=== PATIENT | female | born 1980 | race Caucasian/White ===

== ENCOUNTER 2017-04-29 21:11 | Emergency (ER) | payer OTHER ==
[2017-04-29 21:20] VITALS: TEMP 97.8; BMI 31.1
[2017-04-29] MEDS ORDERED: SODIUM CHLORIDE 1,000 ML IV STA (23:07)
[2017-04-29] MEDS ORDERED: ONDANSETRON 4 MG/2 ML VIAL IVPUSH ONE (23:08)
[2017-04-29] MEDS ORDERED: ONDANSETRON 4 MG/2 ML VIAL ONE (23:14)
[2017-04-29 23:26] LABS: BASOPHIL 1.3 % (0-2.0); EOSINOPHIL 3.5 % (0-4.5); MCH 30.2 pg (25.7-33.7); MCHC 33.1 g/dl (32.0-36.0); MEAN CELL VOLUME 91.3 fl (80-96); MEAN PLT VOLUME 8.6 fl (7.5-11.1); NEUTROPHILS 46.2 % (42.8-82.8); PLATELET COUNT 278 K/MM3 (134-434); RDW 13.3 % (11.6-15.6); WHITE BLOOD COUNT 9.4 K/mm3 (4.0-10.0)
[2017-04-30 00:07] LABS: ALBUMIN 3.4 g/dl (3.4-5.0); ALK PHOS 64 U/L (45-117); AMYLASE 57 U/L (25-115); ANION GAP 9 (8-16); BILIRUBIN,TOTAL 0.2 mg/dL (0.2-1.0); CALCIUM 8.5 mg/dL (8.5-10.1); CO2 25 mmol/L (21-32); CREATININE 0.6 mg/dL (0.55-1.02); GLUCOSE,RANDOM 93 mg/dL (74-106); SGOT/AST 14 U/L (15-37); SGPT/ALT 17 U/L (12-78); TOT PROT 6.4 g/dl (6.4-8.2)
[2017-04-30 00:29] LABS: URINE APPEARANCE CLEAR; URINE BILIRUBIN NEGATIVE (NEGATIVE); URINE COLOR STRAW; URINE GLUCOSE (UA) NEGATIVE (NEGATIVE); URINE KETONE NEGATIVE (NEGATIVE); URINE LEUK ESTERASE NEGATIVE (NEGATIVE); URINE NITRITE NEGATIVE (NEGATIVE); URINE UROBILINOGEN NEGATIVE E.U./dl (0.2-1.0)
[2017-04-30 00:30] LABS: URINE BLOOD 3+ (NEGATIVE); URINE PROTEIN 1+ (NEGATIVE)
[2017-04-30 00:43] LABS: URINE MUCUS RARE; URINE RBC 21 /hpf (0-3)
--- NOTE | 2017-04-30 00:53 | PDOC ---
History of Present Illness - General Chief Complaint: Nausea/Vomiting Stated Complaint: NAUSEA Time Seen by Provider: 04/29/17 22:58 History Source: Patient, Family, Bar Examiner Used Exam Limitations: Language Barrier - History of Present Illness Travel History: No Initial Comments: 04/30/17 00:58 37yo Female patient w/ PmHx: HTN, Asthma presents to ED c/o n/v x 2 day. No change in appetite but unable to hold anything down. Associated sleepiness. LNMP : April 26. Patient denies any other complaints at this time. Timing/Duration: reports: constant Quality: reports: moderate Abdominal Pain Onset Location: denies: RUQ, LUQ, RLQ, LLQ, epigastric, periumbilical, suprapubic, generalized abdomen, flank, unknown, other Pain Radiation: denies: no radiation, RUQ, LUQ, RLQ, LLQ, epigastric, periumbilical, flank, groin, scapula, shoulder, chest, back, other Activities at Onset: denies: none, exertion, emotional upset, rest, sleep, no specific activity, eating, working, sexual intercourse, other Treatment Prior to Arrive: worse with: analgesics, antacids, cold pack, heat, laxative, enema, other Aggravating Factors: worse with: None, Defecation, Eating, Emotional upset, Exertion, Ramos, Movement, Voiding, Change in position Alleviating Factors: worse with: None, Belching, Shallow Breathing, Defecation, Eating, Holding Breath, Passing Gas, Change in Position, Rest, Voiding, Vomiting Past History - Travel Traveled outside of the country in the last 30 days: No Close contact w/someone who was outside of country & ill: No - Past Medical History Allergies/Adverse Reactions: Allergies Allergy/AdvReac Type Severity Reaction Status Date / Time No Known Allergies Allergy Verified 04/29/17 21:20 Home Medications: Ambulatory Orders Labetalol HCl [Normodyne -] 300 mg PO BID #60 tablet 01/14/15 Hydrochlorothiazide [Hctz -] 100 mg PO DAILY 02/14/15 Albuterol Sulfate Inhaler - [Ventolin HFA Inhaler -] 2 inh PO Q6H #1 inh Prednisone [Deltasone -] 40 mg PO DAILY #14 tablet 02/15/15 Ondansetron [Zofran Odt -] 4 mg SL Q6H PRN #20 od.tablet 04/30/17 Asthma: Yes Cancer: No Cardiac Disorders: No Diabetes: No HTN: Yes (since 1999) Suicide Attempt (Hx): No Seizures: No Thyroid Disease: No - Surgical History Abdominal Surgery: Yes - Reproductive History (#): 3 Para: 2 - Psycho/Social/Smoking Cessation Hx Anxiety: No Suicidal Ideation: No Smoking Status: No Smoking History: Never smoked Have you smoked in the past 12 months: No Number of Cigarettes Smoked Daily: 0 Hx Alcohol Use: No Drug/Substance Use Hx: No Substance Use Type: None Hx Substance Use Treatment: No Abd/GI Specific PMHX - Complaint Specific PMHX Colitis: No Diverticulitis: No Gall Bladder Disease: No GERD: No Hepatitis: No Irritable Bowel Synd (IBS): No Pancreatitis: No GI Ulcer Disease: No Review of Systems - Review of Systems Able to Perform ROS?: Yes Is the patient limited Persian proficient: No Constitutional: No: Chills, Fever ABD/GI: Yes: Nausea, Vomiting. No: Abdominal Distended, Constipated, Diarrhea, Difficulty Swallowing, Poor Appetite, Poor Fluid Intake, Rectal Bleeding, Abdominal cramping All Other Systems: Reviewed and Negative *Physical Exam - Vital Signs Last Vital Signs Temp Pulse Resp BP Pulse Ox 97.8 F 77 18 126/76 99 04/29/17 21:18 04/29/17 21:18 04/29/17 21:18 04/29/17 21:18 04/29/17 21:18 - Physical Exam General Appearance: Yes: Nourished, Appropriately Dressed. No: Apparent Distress, Mild Distress, Moderate Distress, Severe Distress HEENT: positive: EOMI, SYLVIA, Normal ENT Inspection, Normal Voice, Symmetrical, TMs Normal, Pharynx Normal. negative: Pharyngeal Erythema, Tonsillar Exudate, Tonsillar Erythema, Nasal Congestion, Rhinorrhea, Sinus Tenderness, TM Bulging, TM Dull, TM Erythema Neck: positive: Trachea midline, Normal Thyroid, Supple. negative: Decreased range of motion, Stridor, Lymphadenopathy (R), Lymphadenopathy (L) Respiratory/Chest: positive: Lungs Clear, Normal Breath Sounds. negative: Chest Tender, Respiratory Distress, Accessory Muscle Use, Labored Respiration, Rapid RR, Decreased Breath Sounds, Rhonchi, Stridor, Wheezing Cardiovascular: positive: Regular Rhythm, Regular Rate Gastrointestinal/Abdominal: positive: Normal Bowel Sounds, Soft. negative: Tender, Distended, Guarding, Rebound, Tenderness Musculoskeletal: positive: Normal Inspection. negative: CVA Tenderness, Vertebral Tenderness Extremity: positive: Normal Capillary Refill, Normal Inspection, Normal Range of Motion. negative: Pedal Edema, Swelling, Calf Tenderness, Erythema, Inflammation Integumentary: positive: Normal Color, Dry, Warm. negative: Erythema, Clammy, Rash, Swelling Neurologic: positive: investigation division sergeant II-XII NML intact, Fully Oriented, Alert, Normal Mood/ Affect, Normal Response, Motor Strength 03/01 ED Treatment Course - LABORATORY CBC & Chemistry Diagram: 04/29/17 23:15 04/29/17 23:15 - ADDITIONAL ORDERS Additional order review: Laboratory Results 04/30/17 04/29/17 00:15 23:15 Sodium 143 Potassium 3.8 Chloride 109 H Carbon Dioxide 25 Anion Gap 9 BUN 14 Creatinine 0.6 Creat Clearance w eGFR > 60 Random Glucose 93 Calcium 8.5 Total Bilirubin 0.2 AST 14 L D ALT 17 D Alkaline Phosphatase 64 D Total Protein 6.4 Albumin 3.4 Total Amylase 57 Lipase 158 Urine Color Straw Urine Appearance Clear Urine pH 6.0 Urine Protein 1+ H Urine Glucose (UA) Negative Urine Ketones Negative Urine Blood 3+ H Urine Nitrite Negative Urine Bilirubin Negative Urine Urobilinogen Negative Ur Leukocyte Esterase Negative Urine HCG, Qual Negative 04/29/17 23:15 RBC 3.72 MCV 91.3 MCHC 33.1 RDW 13.3 MPV 8.6 Neutrophils % 46.2 D Lymphocytes % 42.4 H D Monocytes % 6.6 Eosinophils % 3.5 Basophils % 1.3 - RADIOLOGY Radiology Studies Ordered: Category Date Time Status GALLBLADDER US [US] Stat Ultrasound 04/30/17 23:07 Ordered - Medications Given in the ED: ED Medications Discontinued Medications Generic Name Dose Route Start Last Admin Trade Name Freq PRN Reason Stop Dose Admin Sodium Chloride 1,000 mls @ 1,000 mls/hr 04/29/17 23:07 04/29/17 23:23 Normal Saline - IV 04/30/17 00:06 1,000 mls/hr ASDIR STA Administration Ondansetron HCl 4 mg 04/29/17 23:08 04/29/17 23:24 Zofran Injection IVPUSH 04/29/17 23:09 4 mg ONCE ONE Administration Medical Decision Making - Medical Decision Making 04/30/17 01:19 Patient refused po challenge at this time. Stating she did not feel thirsty but her nausea has disappeared. *DC/Admit/Observation/Transfer Diagnosis at time of Disposition: Nausea & vomiting Qualifiers: Vomiting type: unspecified Vomiting Intractability: non-intractable Qualified Code(s): R11.2 - Nausea with vomiting, unspecified - Discharge Dispostion Disposition: HOME Condition at time of disposition: Improved Admit: No - Prescriptions Prescriptions: Ondansetron [Zofran Odt -] 4 mg SL Q6H PRN #20 od.tablet PRN Reason: Nausea - Patient Instructions Printed Discharge Instructions: DI for Vomiting -- Adult, DI for Nausea -- Adult Additional Instructions: Follow up with your primary care provider this week as scheduled on Saturday. Take medications as prescribed. Print Language: CAMEROONIAN
[2017-04-30 01:31] VITALS: BP 116/57; PULSE 80
== END 2017-04-30 02:10 | disposition home or self-care (01) ==
LOC: JER 21:11
PROC: 3E033GC Introduction of Other Therapeutic Substance into Peripheral Vein, Percutaneous Approach (ICD-10-PCS; principal; 2017-04-29)
DX: R11.2 Nausea with vomiting, unspecified (principal)
CPT/HCPCS: 36415; 76705-TC; 80053; 81003; 81015; 82150; 83690; 84703; 85025; 96374; 99283-25

== ENCOUNTER 2017-12-13 16:30 | Emergency (ER) | payer OTHER ==
--- NOTE | 2017-12-13 16:41 | PDOC ---
Rapid Medical Evaluation Time Seen by Provider: 12/13/17 16:40 Medical Evaluation: Allergies Allergy/AdvReac Type Severity Reaction Status Date / Time No Known Allergies Allergy Verified 04/29/17 21:20 I have performed a brief in-person evaluation of this patient. The patient presents with a chief complaint of: headaches x 3 days. Today with vomiting Pertinent physical exam findings: none I have ordered the following: hcg The patient will proceed to the ED for further evaluation.
[2017-12-13 16:44] VITALS: BP 123/72; PULSE 86; TEMP 98.4; BMI 31.1
[2017-12-13] MEDS ORDERED: ONDANSETRON *ODT* 4 MG TABLET SL ONE (17:54)
[2017-12-13] MEDS ORDERED: IBUPROFEN 400 MG TABLET (FP) PO ONE ×2 (17:54→17:58)
--- NOTE | 2017-12-13 17:54 | PDOC ---
History of Present Illness - General Chief Complaint: Headache Stated Complaint: FATIGUE Time Seen by Provider: 12/13/17 16:40 Past History - Past Medical History Allergies/Adverse Reactions: Allergies Allergy/AdvReac Type Severity Reaction Status Date / Time No Known Allergies Allergy Verified 12/13/17 16:40 Home Medications: Ambulatory Orders Ibuprofen 800 mg PO TID #30 tablet 12/13/17 Oseltamivir Phosphate [Tamiflu] 75 mg PO BID #10 capsule 12/13/17 Asthma: Yes Cancer: No Cardiac Disorders: No COPD: No Diabetes: No HTN: Yes (since 1999) Seizures: No Thyroid Disease: No - Surgical History Abdominal Surgery: Yes - Reproductive History (#): 3 Para: 2 - Suicide/Smoking/Psychosocial Hx Smoking Status: No Smoking History: Never smoked Have you smoked in the past 12 months: No Number of Cigarettes Smoked Daily: 0 Hx Alcohol Use: No Drug/Substance Use Hx: No Substance Use Type: None Hx Substance Use Treatment: No *Physical Exam - Vital Signs Last Vital Signs Temp Pulse Resp BP Pulse Ox 98.4 F 86 19 123/72 99 12/13/17 16:40 12/13/17 16:40 12/13/17 16:40 12/13/17 16:40 12/13/17 16:40 ED Treatment Course - ADDITIONAL ORDERS Additional order review: Laboratory Results 12/13/17 17:32 Urine HCG, Qual Negative *DC/Admit/Observation/Transfer Diagnosis at time of Disposition: Flu-like symptoms - Discharge Dispostion Disposition: HOME Condition at time of disposition: Stable Admit: No - Referrals Referrals: Noel Morris MD [Primary Care Provider] - - Patient Instructions Printed Discharge Instructions: DI for Influenza -- Adult Additional Instructions: You most likely have the flu. This is a virus. We will get better on its own in the next 5-7 days. Your strep test was negative today. Your prescribed Tamiflu. Please take this medication twice a day for the next 5 days to help with her symptoms. Drink plenty of fluids. Take Motrin 800 mg every 8 hours to help with headache, body aches or fevers. Follow up with her primary care doctor later this week. Return to the emergency department if you have worsening fevers, lightheadedness , dizziness, signs of dehydration, or any changes in your symptoms. Lo ms probable es que tengas gripe. Sara es un virus Mejoraremos por s solo en los prximos 5-7 arreola. Tu prueba de estreptococo fue negativa hoy. Laws Tamiflu prescrito Por favor tome sara medicamento dos veces al da dana los prximos 5 arreola para ayudar con zoya sntomas. Beber mucho lquido. Lismore Motrin 800 mg cada 8 horas para ayudar con el dolor de manjinder, dolor de cuerpo o fiebre. Andrey un seguimiento con laws mdico de atencin primaria ms adelante esta semana. Regrese al departamento de emergencias si tiene fiebre, aturdimiento, mareos, signos de deshidratacin o cualquier cambio en zoya sntomas. - Post Discharge Activity Forms/Work/School Notes: Back to Work
[2017-12-13] MEDS ORDERED: ONDANSETRON *ODT* 4 MG TABLET ONE (17:58)
== END 2017-12-13 19:03 | disposition home or self-care (01) ==
LOC: JERFT 16:30
DX: J11.1 Influenza due to unidentified influenza virus with other respiratory manifestations (principal); I10 Essential (primary) hypertension; J45.909 Unspecified asthma, uncomplicated
CPT/HCPCS: 84703; 87070; 87430; 99281-25

== ENCOUNTER → 2020-09-19 | Day surgery (SDC) | payer OTHER | END | disposition home or self-care (01) | LOC: JRADIR 09:58 | PROVIDERS: ATTEND Family Medicine | PROC: 0G9K3ZX Drainage of Thyroid Gland, Percutaneous Approach, Diagnostic (ICD-10-PCS; principal; 2020-09-19) | DX: E04.1 Nontoxic single thyroid nodule (principal) | CPT/HCPCS: 76942; 88173; 88305-TC ==

== ENCOUNTER → 2020-10-05 | Day surgery (SDC) | payer OTHER | END | disposition home or self-care (01) | LOC: JRADIR 10:08 | PROVIDERS: ATTEND Family Medicine | PROC: 0G9G3ZX Drainage of Left Thyroid Gland Lobe, Percutaneous Approach, Diagnostic (ICD-10-PCS; principal; 2020-10-05) | DX: E04.1 Nontoxic single thyroid nodule (principal) | CPT/HCPCS: 76942; 88173; 88305-TC ==

== ENCOUNTER → 2020-12-05 | Day surgery (SDC) | payer OTHER | END | disposition home or self-care (01) | LOC: JRADIR 10:05 | PROVIDERS: ATTEND Family Medicine | PROC: 0G9K3ZX Drainage of Thyroid Gland, Percutaneous Approach, Diagnostic (ICD-10-PCS; principal; 2020-12-05) | DX: E04.1 Nontoxic single thyroid nodule (principal) | CPT/HCPCS: 76942 ==

== ENCOUNTER → 2023-04-29 | Day surgery (SDC) | payer OTHER | END | disposition home or self-care (01) | LOC: JRADIR 09:55 | PROVIDERS: ATTEND Internal Medicine Endocrinology, Diabetes & Metabolism | PROC: 0G9K3ZX Drainage of Thyroid Gland, Percutaneous Approach, Diagnostic (ICD-10-PCS; principal; 2023-04-29) | DX: E04.1 Nontoxic single thyroid nodule (principal) | CPT/HCPCS: 10005; 76942; 88173; 88305-TC ==

== ENCOUNTER 2024-10-23 20:50 | Emergency (ER) | payer OTHER ==
[2024-10-23 20:56] VITALS: BP 132/77; PULSE 82; RESP 20; TEMP 97.7; BMI 32.5
[2024-10-23] MEDS ORDERED: IBUPROFEN 400 MG TABLET (FP) PO ONE (22:35)
[2024-10-23] MEDS: IBUPROFEN 400 MG TABLET (FP) PO ONE (22:36)
[2024-10-23 23:10] LABS: THROAT:GRP A STREP NOT DETECTED (NOTDETECTED)
== END 2024-10-23 23:18 | disposition home or self-care (01) ==
LOC: JERFT 20:50 → JER 20:50
DX: M54.2 Cervicalgia (principal); R42 Dizziness and giddiness; Z20.822 Contact with and (suspected) exposure to COVID-19
CPT/HCPCS: 0241U-QW; 87651; 99283-25